=== PATIENT | male | born 1965 | race African-American/Black ===

== ENCOUNTER 2021-08-06 23:59 | Emergency (ER) | payer SELFPAY ==
[2021-08-07] MEDS ORDERED: Ibuprofen 600 MG Tab PO ONE (00:48)
== END 2021-08-07 02:22 | disposition home or self-care (01) ==
LOC: JD.ED 23:59
DX: S01.411A Laceration without foreign body of right cheek and temporomandibular area, initial encounter (principal); S01.01XA Laceration without foreign body of scalp, initial encounter; W22.09XA Striking against other stationary object, initial encounter; Y99.0 Civilian activity done for income or pay
CPT/HCPCS: 70450; 70486; 99283; A9270; 99284